=== PATIENT | male | born 1995 | race Caucasian/White ===

== ENCOUNTER 2021-08-10 07:29 | Day surgery (SDC) | payer MEDICAID, OTHER ==
[~2021-08-10 07:29] MED LIST: Glycopyrrolate 0.2 MG/ML 2 ML SDV IVPUSH ONE
[2021-08-10] MEDS ORDERED: fentaNYL 100 MCG/2 ML SDV ONE (07:31)
[2021-08-10] MEDS ORDERED: Midazolam 1 MG/ML 2 ML SDV ONE (07:31)
[2021-08-10] MEDS ORDERED: Propofol 200 MG/20 ML SDV ONE ×2 (07:31→10:33)
[2021-08-10] MEDS ORDERED: Glycopyrrolate 0.2 MG/ML 2 ML SDV IVPUSH ONE (08:20)
[2021-08-10] MEDS ORDERED: Dextrose 5%-Lactated Ringers 1,000 ML IV SCH (08:20)
[2021-08-10 09:05] LABS: CORONAVIRUS COVID-19 NAA NEGATIVE (NEGATIVE)
[2021-08-10 11:25] VITALS: PULSE 73
[2021-08-10 11:48] VITALS: BP 134/76
== END 2021-08-10 11:50 | disposition home or self-care (01) ==
LOC: JP.SDS 07:29
PROVIDERS: ATTEND Surgery
DX: K22.70 Barrett's esophagus without dysplasia (principal); K21.9 Gastro-esophageal reflux disease without esophagitis; K44.9 Diaphragmatic hernia without obstruction or gangrene; K29.60 Other gastritis without bleeding; Z01.812 Encounter for preprocedural laboratory examination; Z20.822 Contact with and (suspected) exposure to COVID-19
CPT/HCPCS: 0241U; 87081; 88305; J2250; J2704; J3010; J7121; U0002

== ENCOUNTER 2021-08-20 07:58 | Inpatient (IN) | payer MEDICAID ==
[2021-08-20] MEDS ORDERED: Scopolamine 1.5 MG Transdermal Patch TOP SCH (08:00)
[2021-08-20] MEDS ORDERED: Celecoxib 200 MG Cap PO ONE (08:05)
[2021-08-20] MEDS ORDERED: Acetaminophen 500 MG Tab PO ONE (08:05)
[2021-08-20] MEDS ORDERED: Succinylcholine 200 MG/10 ML MDV ONE (08:09)
[2021-08-20] MEDS ORDERED: Glycopyrrolate 0.2 MG/ML 5 ML MDV ONE (08:10)
[2021-08-20] MEDS ORDERED: Neostigmine Methylsulfate 1 MG/ML 5 ML Syringe ONE (08:10)
[2021-08-20] MEDS ORDERED: Rocuronium 50 MG/5 ML Vial ONE (08:10)
[2021-08-20] MEDS ORDERED: Ondansetron 4 MG/2 ML SDV ONE (08:10)
[2021-08-20] MEDS ORDERED: Propofol 200 MG/20 ML SDV ONE (08:10)
[2021-08-20] MEDS ORDERED: Dexamethasone 4 MG/ML SDV ONE (08:10)
[2021-08-20] MEDS ORDERED: fentaNYL 250 MCG/5 ML SDV ONE ×2 (08:12→10:39)
[2021-08-20] MEDS ORDERED: Levofloxacin/Dextrose 5%-Water 500 MG in Premix Bag 1 BAG IV ONE (08:30)
[2021-08-20] MEDS ORDERED: Ketamine 21 MG in Sodium Chloride 0.9% 19.79 ML IV SCH (09:00)
[2021-08-20] MEDS ORDERED: Ketamine 500 MG/5 ML MDV IV SCH (09:00)
[2021-08-20] MEDS: Dextrose 5%-Lactated Ringers 1,000 ML IV SCH ×3 (09:26→23:17)
[2021-08-20] MEDS ORDERED: Bupivacaine 0.5% 50 ML MDV ONE (10:30)
[2021-08-20] MEDS ORDERED: Lidocaine 1% with EPINEPHrine 1:100,000 50 ML MDV ONE (10:31)
[2021-08-20] MEDS ORDERED: Ketorolac 30 MG/ML SDV ONE (11:07)
[2021-08-20] MEDS ORDERED: LORazepam 2 MG/ML SDV IVPUSH ONE (11:45)
[2021-08-20] MEDS ORDERED: HYDROmorphone 2 MG Tab PO PRN (12:22)
[2021-08-20] MEDS ORDERED: Ondansetron 4 MG/2 ML SDV IVPUSH PRN (12:23)
[2021-08-20] MEDS ORDERED: HYDROmorphone 0.5 MG/0.5 ML Syringe IVPUSH PRN (13:00)
[2021-08-20] MEDS ORDERED: Pantoprazole 40 MG Vial IV SCH ×2 (13:00)
[2021-08-20] MEDS: Metoclopramide 10 MG/2 ML SDV IVPUSH SCH ×2 (13:23→19:37)
[2021-08-20] MEDS: Acetaminophen 500 MG Tab PO SCH ×2 (13:23→21:30)
[2021-08-20] MEDS: ClonazePAM 0.5 MG Tab PO PRN (13:24)
[2021-08-20] MEDS: HYDROmorphone 1 MG/ML Syringe IV PRN ×2 (13:41→16:47)
[2021-08-20] MEDS ORDERED: LORazepam 2 MG/ML SDV IVPUSH PRN (14:00)
[2021-08-21] MEDS: Metoclopramide 10 MG/2 ML SDV IVPUSH SCH ×2 (00:47→07:19)
[2021-08-21] MEDS: ClonazePAM 0.5 MG Tab PO PRN (01:22)
[2021-08-21] MEDS: Acetaminophen 500 MG Tab PO SCH ×2 (03:53→07:20)
[2021-08-21 07:16] VITALS: BP 140/63; PULSE 50
== END 2021-08-21 10:00 | disposition home or self-care (01) | DRG 328 ==
LOC: JP.SDS 07:58 → JP.SDSSCHI 07:58 → JP.2SS 11:35 → EDSTATUS 15:15
PROVIDERS: ADMIT Surgery; ATTEND Surgery
PROC: 0DV44ZZ Restriction of Esophagogastric Junction, Percutaneous Endoscopic Approach (ICD-10-PCS; principal; 2021-08-20)
PROC: 0BUT4JZ Supplement Diaphragm with Synthetic Substitute, Percutaneous Endoscopic Approach (ICD-10-PCS; 2021-08-20)
DX: K21.9 Gastro-esophageal reflux disease without esophagitis (principal); K44.9 Diaphragmatic hernia without obstruction or gangrene; F41.9 Anxiety disorder, unspecified; F12.10 Cannabis abuse, uncomplicated
CPT/HCPCS: 36415; 80053; 80305-QW; 83735; 84100; 85027; A9270-GY; C1713; C1781; C9113; J0171; J0330; J1100; J1170; J1885; J1956; J2060; J2405; J2704; J2710; J2765; J2795; J3010; J3490; J7121